=== PATIENT | female | born 1985 | race Caucasian/White ===

== ENCOUNTER 2018-12-21 06:58 | Inpatient (IN) ==
[2018-12-21] MEDS ORDERED: CITRIC ACID/SODIUM CITRATE 30 ML UDCUP PO ONE (07:35)
[2018-12-21] MEDS ORDERED: FAMOTIDINE 20 MG/2 ML VIAL IV ONE (07:35)
[2018-12-21] MEDS ORDERED: ceFAZolin 2,000 MG in PREMIX 1 EACH IV ONE (07:35)
[2018-12-21] MEDS ORDERED: OXYTOCIN/LR 30 UNIT/1,000 ML BAG IV ONE (07:41)
[2018-12-21] MEDS ORDERED: OXYTOCIN 10 UNIT/ML VIAL IM ONE (07:42)
[2018-12-21] MEDS ORDERED: LACTATED RINGERS 1,000 ML IV ONE (08:00)
[2018-12-21 08:01] LABS: Basophils # 0.1 10*3/uL (0.0-0.2); Basophils % 0.5 % (0.0-0.8); Eosinophils # 0.2 10*3/uL (0.0-0.87); Eosinophils % 1.7 % (0.00-10.9); Hemoglobin 11.2 GM/DL (12.0-16.0); Immature Granulocytes % 0.7 %; Immature Granulocytes Absolute 0.07 #; Lymphocytes # 2.7 10*3/uL (1.4-4.0); Lymphocytes % 27.7 % (21.3-54.2); Mean Corpuscular HGB Conc 32.9 GM/DL (32-36); Mean Corpuscular Volume 95.5 FL (87-102); Mean Platelet Volume 11.7 FL (9.6-12.0); Neutrophils % 60.4 % (38.7-73.9); Platelet Count 253 T/CUMM (130-400); Red Blood Count 3.56 MC/CUMM (3.8-5.5); Red Cell Distribution Width 13.3 % (9.3-17.3); White Blood Count 9.9 T/CUMM (4-12)
[2018-12-21 08:31] LABS: Alanine Aminotransferase 20 U/L (13-56); Albumin 2.7 G/DL (3.4-5.0); Alkaline Phosphatase 170 U/L (45-117); Aspartate Amino Transferase 17 U/L (0-37); Bilirubin,Total < 0.39 MG/DL (0.2-1.0); Blood Urea Nitrogen 13 MG/DL (7-18); Calcium 8.4 MG/DL (8.5-10.1); Glucose 82 MG/DL (74-106); Osmolality,Calculated 277.4 MOS/KG (273-304); Total Protein 6.5 G/DL (6.4-8.3)
[2018-12-21] MEDS ORDERED: LACTATED RINGERS 1,000 ML IV SCH ×2 (09:00→12:00)
[2018-12-21] MEDS ORDERED: DEXAMETHASONE 4 MG/1 ML VIAL ONE (09:12)
[2018-12-21] MEDS ORDERED: BUPIVACAINE 0.5% 50 ML VIAL ONE (09:12)
[2018-12-21] MEDS ORDERED: LIDOCAINE 1% 5 ML VIAL ONE (09:12)
[2018-12-21] MEDS ORDERED: PHENYLEPHRINE 1 MG/10 ML SYRINGE IV ONE (09:19)
[2018-12-21] MEDS ORDERED: ONDANSETRON 4 MG/2 ML VIAL ONE (09:19)
[2018-12-21] MEDS ORDERED: MORPHINE 10 MG/10 ML VIAL ONE (09:20)
[2018-12-21] MEDS ORDERED: BUPIVACAINE SPINAL 0.75% 2 ML AMP SPINAL ONE (09:20)
[2018-12-21 11:37] LABS: Cord Venous Blood HCO3 23.4 MMOL/L; Cord Venous Blood PCO2 42.4 MMHG; Cord Venous Blood PO2 26.5 MMHG
[2018-12-21] MEDS ORDERED: OXYTOCIN/LR 20 UNIT/1,000 ML BAG IV ONE (11:49)
[2018-12-21] MEDS ORDERED: SIMETHICONE CHEW 80 MG TABLET PO PRN (11:49)
[2018-12-21] MEDS ORDERED: RHO(D) IMMUNE GLOBULIN 300 MCG SYRINGE IM ONE (11:49)
[2018-12-21] MEDS ORDERED: IBUPROFEN 800 MG TABLET PO PRN (11:49)
[2018-12-21] MEDS ORDERED: MAGNESIUM HYDROXIDE SUSP 30 ML UDCUP PO PRN (11:49)
[2018-12-21] MEDS ORDERED: ACETAMINOPHEN 325 MG TABLET PO PRN (11:49)
[2018-12-21 11:53] LABS: Apearance,Urine CLEAR (Clear); Bacteria,Urine Occasional /HPF (Few); Bilirubin,Urine Negative (Negative); Blood, Urine Negative (Negative); Glucose,Urine (UA) Negative (Negative); Ketones,Urine Negative (Negative); Nitrite,Urine Negative (Negative); Protein,Urine Negative; RBC,Urine 1 /HPF (0-4); Squamous Epithelial Cell,Urine Occasional /HPF (0-10); Urine Color Straw (Yellow); Urine Specific Gravity 1.015 (1.001-1.035); Urine Urobilinogen < 2.0 EU/DL (0.2-1.0); WBC,Urine 1 /HPF (0-6)
[2018-12-21] MEDS ORDERED: ACETAMINOPHEN 500 MG TABLET PO PRN (11:56)
[2018-12-21] MEDS ORDERED: ceFAZolin 1,000 MG in SYRINGE 1 EACH IV SCH (12:00)
[2018-12-21] MEDS: KETOROLAC 30 MG/1 ML VIAL IV SCH ×2 (13:09→18:00)
[2018-12-21] MEDS: ONDANSETRON 4 MG/2 ML VIAL IV PRN ×2 (14:56→17:22)
[2018-12-21] MEDS ORDERED: PROMETHAZINE 25 MG/1 ML VIAL IM PRN (15:53)
[2018-12-21] MEDS ORDERED: diphenhydrAMINE 50 MG/1 ML VIAL IV PRN (18:26)
[2018-12-21 19:52] LABS: Basophils % 0.2 % (0.0-0.8); Hematocrit 31.7 VOL% (35.7-47.0); Hemoglobin 10.4 GM/DL (12.0-16.0); Immature Granulocytes % 0.7 %; Immature Granulocytes Absolute 0.12 #; Lymphocytes # 1.8 10*3/uL (1.4-4.0); Lymphocytes % 9.7 % (21.3-54.2); Mean Corpuscular HGB Conc 32.8 GM/DL (32-36); Mean Corpuscular Volume 94.9 FL (87-102); Mean Platelet Volume 11.4 FL (9.6-12.0); Monocytes % 5.7 % (1.7-12.7); Neutrophils % 83.7 % (38.7-73.9); Platelet Count 227 T/CUMM (130-400); Red Blood Count 3.34 MC/CUMM (3.8-5.5); Red Cell Distribution Width 13.1 % (9.3-17.3); White Blood Count 18.2 T/CUMM (4-12)
[2018-12-21] MEDS: CLINDAMYCIN INJ 900 MG in PREMIX 1 EACH IV SCH (20:40)
[2018-12-21] MEDS: DOCUSATE SODIUM 100 MG CAPSULE PO SCH (21:04)
[2018-12-22] MEDS: KETOROLAC 30 MG/1 ML VIAL IV SCH ×2 (00:08→06:00)
[2018-12-22 04:55] LABS: Basophils # 0.1 10*3/uL (0.0-0.2); Basophils % 0.4 % (0.0-0.8); Eosinophils # 0.1 10*3/uL (0.0-0.87); Eosinophils % 0.4 % (0.00-10.9); Hematocrit 32.1 VOL% (35.7-47.0); Hemoglobin 10.6 GM/DL (12.0-16.0); Immature Granulocytes % 0.6 %; Lymphocytes # 3.2 10*3/uL (1.4-4.0); Lymphocytes % 19.1 % (21.3-54.2); Mean Platelet Volume 12.1 FL (9.6-12.0); Monocytes % 7.7 % (1.7-12.7); Neutrophils % 71.8 % (38.7-73.9); Platelet Count 225 T/CUMM (130-400); Red Blood Count 3.38 MC/CUMM (3.8-5.5); Red Cell Distribution Width 13.2 % (9.3-17.3)
[2018-12-22] MEDS: CLINDAMYCIN INJ 900 MG in PREMIX 1 EACH IV SCH (06:10)
[2018-12-22] MEDS: DOCUSATE SODIUM 100 MG CAPSULE PO SCH ×3 (10:14→20:02)
[2018-12-22] MEDS: MULTIVITAMIN (PRENATAL) TABLET PO SCH (10:14)
[2018-12-22] MEDS ORDERED: METOCLOPRAMIDE 10 MG TABLET PO SCH (18:00)
[2018-12-23] MEDS: IBUPROFEN 800 MG TABLET PO PRN ×2 (00:15→08:15)
[2018-12-23] MEDS ORDERED: METOCLOPRAMIDE 10 MG TABLET PO SCH (04:00)
[2018-12-23 08:14] VITALS: BP 124/72
[2018-12-23] MEDS: DOCUSATE SODIUM 100 MG CAPSULE PO SCH (09:37)
[2018-12-23] MEDS: MULTIVITAMIN (PRENATAL) TABLET PO SCH (09:37)
[2018-12-23] MEDS ORDERED: DIPH/TET/ACEL PERT BOOSTER VACCINE 0.5 ML VIAL IM ONE (10:13)
[2018-12-23] MEDS ORDERED: MEASLES/MUMPS/RUBELLA VACCINE 0.5 ML VIAL SUBCUT ONE (10:13)
== END 2018-12-23 11:35 | disposition home or self-care (01) | DRG 785 ==
LOC: N.LD 06:58 → N.OB 15:09
PROVIDERS: ADMIT Obstetrics & Gynecology; ATTEND Obstetrics & Gynecology